=== PATIENT | female | born 1960 | race Caucasian/White ===

== ENCOUNTER 2017-01-13 18:45 | Emergency (ER) | payer MEDICAID ==
[~2017-01-13] VITALS: Ht 152.4 cm; Wt 77.7 kg
[2017-01-13 18:46] VITALS: BP 131/94
--- NOTE | 2017-01-13 20:55 | NUR ---
Patient to OF.
--- NOTE | 2017-01-13 20:57 | NUR ---
Dr. Tony evaluating patient.
--- NOTE | 2017-01-13 21:00 | NUR ---
56/F PRESENT TO ER C/O RT BOTTOM FOOT PAIN x 3 DAYS. PAIN 9/10 SHARP. PT DENIES INJURY OR TRAUMA. HX: DM. AAO X4, AMBULATORY WITH STEADY GAIT. SKIN WARM AND DRY TO TOUCH. RT. FOOT HARD SPOT WITH PAIN, C/O PAIN 2/10. VSS, ER MADE AWARE OF PT. STATUS.
--- NOTE | 2017-01-13 21:11 | NUR ---
Patient taken to XRAY via wheelchair per tech.
--- NOTE | 2017-01-13 21:25 | NUR ---
Patient back from XRAY via wheelchair per tech--to OF.
--- NOTE | 2017-01-13 21:40 | NUR ---
Patient discharged with v/s stable. Written and verbal after care instructions given and explained. Patient alert, oriented and verbalized understanding of instructions. Ambulatory with steady gait. All questions addressed prior to discharge. ID band removed. Patient advised to follow up with PMD. Rx of KEFLEX 500 MG given. Patient educated on indication of medication including possible reaction and side effects. Opportunity to ask questions provided and answered.
[2017-01-13 21:47] VITALS: BP 125/85
== END 2017-01-13 21:40 | disposition home or self-care (01) ==
LOC: MED 18:45
DX: L03.115 Cellulitis of right lower limb (principal); E11.9 Type 2 diabetes mellitus without complications; Z88.1 Allergy status to other antibiotic agents
CPT/HCPCS: 73630; 82948; 99284

== ENCOUNTER 2020-05-13 18:53 | Emergency (ER) | payer BC, OTHER ==
[~2020-05-13] VITALS: Ht 152.4 cm; Wt 70.8 kg
[2020-05-13 18:56] VITALS: BP 129/83
--- NOTE | 2020-05-13 19:45 | NUR ---
PT AMBULATED TO CHAIR C W/ STEADY GAIT.
--- NOTE | 2020-05-13 19:45 | NUR ---
59 Y/O FEMALE PRESENTED TO ED C/O NEDDLE STICK LEFT INDEX FINGER X TODAY WHILE AT WORK. +CMS , CAP REFIL < 3 SEC . +ROM. SKIN PINK , WARM AND INTACT. PT A/O X 4 . RR EVEN AND UNLABORED. NO ACUTE DISTRESS NOTED. ERPA MADE AWARE OF PT STATUS. MED HX:DMII, HTN, HLD, LOW VITAMIN D AX: AMOXICILLIN
--- NOTE | 2020-05-13 19:59 | NUR ---
REY IGLESIAS AT CHAIR SIDE FOR MEDICAL EVALUATION.
--- NOTE | 2020-05-13 20:21 | NUR ---
LAB AT BEDSIDE.
--- NOTE | 2020-05-13 20:25 | NUR ---
DHRUV AT [facility] FOR MEDICAL RE EVALUATION.
[2020-05-13 20:42] LABS: BASOPHILS # (AUTO) 0.1 K/uL (0.00-0.22); EOSINOPHILS # (AUTO) 0.2 K/uL (0-0.4); EOSINOPHILS % (AUTO) 3.5 % (0.0-4.0); HEMATOCRIT 40.5 % (36-48); HEMOGLOBIN 13.7 g/dL (12.0-16.0); LYMPHOCYTES # (AUTO) 2.5 K/uL (2.5-16.5); LYMPHOCYTES % (AUTO) 35.1 % (20.5-51.1); MEAN CORPUSCULAR HEMOGLOBIN 29 pg (27-31); MEAN CORPUSCULAR HGB CONC 34 g/dL (33-37); MEAN CORPUSCULAR VOLUME 84.9 fL (80-94); MONOCYTES # (AUTO) 0.4 K/uL (0.8-1.0); MONOCYTES % (AUTO) 6.4 % (1.7-9.3); NEUTROPHILS # (AUTO) 3.8 K/uL (1.8-7.7); PLATELET COUNT (AUTO) 258 K/uL (140-450); RED BLOOD CELL COUNT(AUTO) 4.77 MIL/uL (4.20-5.40); RED CELL DISTRIBUTION WIDTH 13.5 % (11.6-13.7)
--- NOTE | 2020-05-13 20:45 | NUR ---
PT SITTING IN CHAIR C , VSS . NO ACUTE DISTRESS NOTED. RR EVEN AND UNLABORED.
[2020-05-13 20:58] LABS: ALBUMIN 3.9 g/dL (3.4-5.0); ANION GAP 11.1 (8-16); CARBON DIOXIDE 30.9 mmol/L (21-32); CREATININE 0.7 mg/dL (0.6-1.3); TOTAL BILIRUBIN 0.2 mg/dL (0.0-1.0)
[2020-05-13 21:29] VITALS: BP 132/85
--- NOTE | 2020-05-13 21:29 | NUR ---
Patient discharged with v/s stable. Written and verbal after care instructions given and explained. Patient alert, oriented and verbalized understanding of instructions. Ambulatory with steady gait. All questions addressed prior to discharge. ID band removed. Patient advised to follow up with PMD. Rx of TENOFOVIR DISOPOXIL FUMARATE-EMTRICITABINE & RALTEGRAVIR given. Patient educated on indication of medication including possible reaction and side effects. Opportunity to ask questions provided and answered.
[2020-05-15 08:16] LABS: HEPATITIS B SURFACE ANTIGEN Negative (Negative)
== END 2020-05-13 21:29 | disposition home or self-care (01) ==
LOC: MED 18:53
DX: S60.451A Superficial foreign body of left index finger, initial encounter (principal); E11.9 Type 2 diabetes mellitus without complications; I10 Essential (primary) hypertension; Z88.1 Allergy status to other antibiotic agents; W46.0XXA Contact with hypodermic needle, initial encounter; Y93.89 Activity, other specified; Y92.89 Other specified places as the place of occurrence of the external cause; Y99.8 Other external cause status
CPT/HCPCS: 36415; 80053; 85025; 86592; 86702; 86803; 87340; 90471; 90715; 99283